=== PATIENT | male | born 1990 ===

== ENCOUNTER 2018-03-08 19:51 | Emergency (ER) | payer OTHER ==
[2018-03-08 21:08] VITALS: RESP 18; O2SAT 100
--- NOTE | 2018-03-08 23:10 | ED PDOC ---
HPI: Back Time Seen by Provider: 03/08/18 21:58 Chief Complaint (Nursing): Back Pain Chief Complaint (Provider): Back Pain History Per: Patient History/Exam Limitations: no limitations Onset/Duration Of Symptoms: Days (since 02/15) Current Symptoms Are (Timing): Still Present Quality Of Discomfort: "Pain" Severity: Moderate Pain Scale Rating Of: 6 Associated Symptoms: None Exacerbating Factor(s): Movement, Standing Additional Complaint(s): Patient is a 27 year old male with no past medical history who presents for evaluation of lower back pain since 02/15/18. 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 Patient states initially he did not have pain, but once he returned from work that evening he felt discomfort in his lower back that has now become constant and worsens with movement and standing. Patient denies any recent trauma, falls, or history of back injury/surgery. Patient has been seen by [facility] twice since the event occurred but persistent of symptoms prompted ED visit. Patient notes he has a follow up appointment with [facility] tomorrow as well. Patient has been taking Ibuprofen 800mg to manage his pain, last dose was taken two days ago with no relief. Patient states he has not had any imaging of his back and is requesting an MRI at this time. Patient denies fever, chills, incontinence, saddle anesthesia, radiation, urinary symptoms, weakness/numbness , drug use, nausea/vomiting, abdominal pain, chest pain, SOB. PMD: None Past Medical History Reviewed: Historical Data, Nursing Documentation, Vital Signs Vital Signs: Last Vital Signs Temp 98.7 F 03/08/18 20:51 Pulse 114 H 03/08/18 20:51 Resp 18 03/08/18 20:51 BP 146/103 H 03/08/18 20:51 Pulse Ox 100 03/08/18 20:51 - Medical History PMH: No Chronic Diseases - Surgical History Surgical History: No Surg Hx - Family History Family History: States: Unknown Family Hx - Living Arrangements Living Arrangements: With Family - Social History Current smoker - smoking cessation education provided: No Alcohol: None Drugs: Denies - Home Medications Home Medications: Ambulatory Orders Medication Instructions Recorded Acetaminophen [Acetaminophen 8 650 mg PO Q8 PRN #21 tab 03/09/18 Hour] Cyclobenzaprine [Cyclobenzaprine 10 mg PO Q8 PRN #12 tab 03/09/18 HCl] - Allergies Allergies/Adverse Reactions: Allergies Allergy/AdvReac Type Severity Reaction Status Date / Time No Known Allergies Allergy Verified 03/08/18 21:08 Review of Systems ROS Statement: Except As Marked, All Systems Reviewed And Found Negative Musculoskeletal: Positive for: Back Pain Physical Exam - Reviewed Nursing Documentation Reviewed: Yes Vital Signs Reviewed: Yes - Physical Exam Appears: Positive for: Well, Non-toxic, No Acute Distress (ambulatory in ED without difficulty) Head Exam: Positive for: ATRAUMATIC, NORMOCEPHALIC Skin: Positive for: Normal Color, Warm, Dry Eye Exam: Positive for: EOMI, PERRL ENT: Positive for: Other (Mucus membranes moist.) Neck: Positive for: Painless ROM, Supple Cardiovascular/Chest: Positive for: Regular Rate, Rhythm Respiratory: Positive for: Normal Breath Sounds. Negative for: Decreased Breath Sounds, Accessory Muscle Use, Respiratory Distress Gastrointestinal/Abdominal: Positive for: Soft. Negative for: Tenderness, Mass , Distended, Guarding Back: Positive for: Vertebral Tenderness (midline, lumbar), Muscle Spasm ( bilateral paralumbar (+) tenderness). Negative for: L CVA Tenderness, R CVA Tenderness Extremity: Positive for: Normal ROM. Negative for: Deformity Neurologic/Psych: Positive for: Alert, Oriented (x3), Gait (steady, unassisted in ED). Negative for: Aphasia, Facial Droop - ECG O2 Sat by Pulse Oximetry: 100 (RA) Pulse Ox Interpretation: Normal Medical Decision Making Medical Decision Making: Clinical Impression: acute back pain, lumbosacral strain Plan: -Lumbar XR -Toradol IM -Flexeril PO -Tramadol PO (Patient states he is not driving home). -Re-evaluation XR reviewed: (-) fracture as read by Jane GOMEZ. Patient advised that official radiology read of XR is still pending and will call the patient if there is any discrepancy within 24 hours. On re-evaluation, patient reports improvement of symptoms. On exam, patient remains AAOx3, in no acute distress. On exam, neck is supple, lungs CTA, cardiac RRR, abdomen is soft and non-tender, neuro exam shows no focal findings. VSS, stable for discharge. Repeat HR: 92 Repeat BP: 158/90 Diagnostic results d/w the patient in great detail. Dx of acute back pain, lumbosacral strain d/w the patient. Based on history, exam and diagnostic results plan will be for discharge and outpatient follow up as planned tomorrow with [facility]. Advised to follow up with primary care physician in 1-2 days without fail. Advised to take medication as prescribed. Return to the emergency room at any time for any new or worsening symptoms. Patient states he fully agrees with and understands discharge instructions. States that he agrees with the plan and disposition. Verbalized and repeated discharge instructions and plan. I have given the patient opportunity to ask any additional questions. Disposition - Clinical Impression Clinical Impression: Back strain, Lumbosacral strain, Acute back pain, Muscle spasm of back - Patient ED Disposition Is Patient to be Admitted: No Counseled Patient/Family Regarding: Studies Performed, Diagnosis, Need For Followup, Rx Given - Disposition Referrals: [facility] [Outside] Disposition: Routine/Home Disposition Time: 00:00 Condition: STABLE Additional Instructions: FOLLOW UP WITH [facility] TOMORROW SCHEDULED. RETURN TO ED WITH ANY NEW OR WORSENING SYMPTOMS. CONTINUE IBUPROFEN AT HOME AND TAKE PRESCRIBED MEDS IN ADDITION NEEDED FOR PAIN. Prescriptions: Acetaminophen [Acetaminophen 8 Hour] 650 mg PO Q8 PRN #21 tab PRN Reason: Pain, Moderate (4-7) Cyclobenzaprine [Cyclobenzaprine HCl] 10 mg PO Q8 PRN #12 tab PRN Reason: Muscle Spasm Instructions: Low Back Pain in Adults, Back Exercises, Lumbar Muscle Strain Forms: [facility] (Nigerian) Print Language: ISRAELI
[2018-03-09 00:32] VITALS: BP 158/90; PULSE 92; TEMP 98
--- NOTE | 2018-03-09 09:21 | RAD ---
PROCEDURE: Radiographs of the Lumbar Spine. HISTORY: trauma, pain x3 weeks COMPARISON: No prior. FINDINGS: BONES: Normal alignment. No listhesis. No fracture. DISC SPACES: Unremarkable. OTHER FINDINGS: None. IMPRESSION: Unremarkable radiographs of the lumbar spine.
== END 2018-03-09 00:32 | disposition home or self-care (01) ==
LOC: H.ER 19:51
DX: S39.012A Strain of muscle, fascia and tendon of lower back, initial encounter (principal); X50.9XXA Other and unspecified overexertion or strenuous movements or postures, initial encounter; Y99.0 Civilian activity done for income or pay
CPT/HCPCS: 72100; 96372; 99283; J1885